=== PATIENT | female | born 1950 | race Caucasian/White ===

== ENCOUNTER → 2018-02-07 | Day surgery (SDC) | payer MEDICARE ==
[2018-02-02 10:23] LABS: BASOPHILS % 0.8 % (0.0-1.0); EOSINOPHILS # (AUTO) 0.2 (0.0-0.4); EOSINOPHILS % 3.2 % (0.0-6.0); HEMATOCRIT 40.8 % (34.2-44.1); HEMOGLOBIN 13.6 g/dL (12.0-16.0); LYMPHOCYTES # (AUTO) 1.6 (1.0-3.2); LYMPHOCYTES % 31.8 % (18.0-39.1); MEAN CORPUSCULAR HEMOGLOBIN 31.1 pg (28-32); MEAN CORPUSCULAR HGB CONC 33.3 g/dL (31-35); MEAN CORPUSCULAR VOLUME 93.2 fL (81-99); MONOCYTES # (AUTO) 0.5 (0.2-0.8); MONOCYTES % 9.7 % (4.4-11.3); NEUTROPHILS # (AUTO) 2.7 (2.1-6.9); NEUTROPHILS % 54.1 % (38.7-80.0); PLATELET COUNT 182 x10e3/uL (140-360); RED BLOOD COUNT 4.38 x10e6/uL (3.6-5.1); RED CELL DISTRIBUTION WIDTH 13.5 % (11.7-14.4)
[2018-02-02 11:04] LABS: ANION GAP 15.2 mmol/L (8-16); CALCIUM 9.8 mg/dL (8.4-10.2); CREATININE, SERUM 0.95 mg/dL (0.57-1.11); POTASSIUM 4.2 mmol/L (3.5-5.1)
--- NOTE | 2018-02-02 11:08 | Diagnostic Imaging Report ---
PROCEDURE: Frontal and lateral views of the chest. COMPARISON: None. INDICATIONS: PRE-OP FINDINGS: Lines/tubes: None. Lungs: The lungs are well inflated and clear. There is no evidence of pneumonia or pulmonary edema. Pleura: There is no pleural effusion or pneumothorax. Heart and mediastinum: The heart and the mediastinum are normal. Bones: No acute bony abnormality. IMPRESSION: 1. No acute cardiopulmonary disease. Dictated by: Max Saleem M.D. on 02/02/2018 at 11:12 Electronically approved by: Max Saleem M.D. on 02/02/2018 at 11:12
[~2018-02-07] MED LIST: BUPIVACAINE HCL 0.5% INJ 30 ML VIAL INJ ONE; CEFAZOLIN SOD 1 GM VIAL ONE; DEXAMETHASONE SOD PHOS INJ 4 MG/ML VIAL ONE; FENTANYL CITRATE/PF 100MCG/2 ML INJ ONE; KETOROLAC TROMETHAMINE 30 MG/ML VIAL ONE; LIDOCAINE HCL 2% LOCAL INJ 5 ML SDV VIAL INJ ONE; LYRICA50 MG PO; MIDAZOLAM HCL 2 MG/2 ML VIAL ONE; OMEPRAZOLE40 MG PO; ONDANSETRON HCL INJ 2 MG/ML VIAL ONE; PROPOFOL IV EMULSION 10 MG/ML 20 ML VIAL ONE; SEVOFLURANE INHAL SOLN 250 ML PEN BTL ONE; ZESTORETIC 20-1 EACH PO
--- NOTE | 2018-02-07 09:59 | Operative Report ---
DATE OF PROCEDURE: February 07, 2018 PREOPERATIVE DIAGNOSIS: Left de Quervain's tenosynovitis. POSTOPERATIVE DIAGNOSES 1. Left de Quervain's tenosynovitis. 2. Accessory compartment. PROCEDURES 1. Left de Quervain's release. 2. Release of accessory compartment. ANESTHESIA: General. HISTORY: The patient is a 67-year-old female with left de Quervain's tenosynovitis. The risks, benefits and alternatives to treatment were discussed with the patient and the family. They are prepared to undergo the procedures outlined. DETAILS OF PROCEDURE: Patient was marked preoperatively in the holding area. She was brought to the operating theater, and after the induction of adequate general anesthesia, she was prepped and draped in a supine position. A longitudinal incision was marked out over the 1st dorsal compartment. Time out was performed. The left upper extremity was then exsanguinated and tourniquet inflated to a pressure of 250 mmHg. The incision was made through the skin and subcutaneous tissues. Small venous tributaries were controlled with bipolar cautery. The branches of the radial sensory nerve were identified and retracted away from the 1st dorsal compartment. The compartment was noted to be quite tense and bulging. It is incised. The EPB tendon is clearly identified. The APL tendon was found proximal to the dorsal compartment and traced. It was noted to course through an accessory compartment. This accessory compartment was released, and then the APL tendon is fully released and decompressed. The wound was copiously irrigated with bacteriostatic saline. Closed with a 5-0 nylon in an interrupted horizontal mattress fashion. A Marcaine field block was performed at the operative site. The tourniquet was deflated. All the fingers pinked up nicely. A sterile bulking conforming bandage was applied. Patient tolerated the procedure well. Brought to the recovery room in satisfactory condition, and discharged with a postoperative instruction sheet, as well as a followup appointment. Job#: [id number] FRANCISCO JAVIER
== END | disposition home or self-care (01) ==
LOC: OR 06:04
PROVIDERS: ATTEND Plastic Surgery
DX: M65.4 Radial styloid tenosynovitis [de Quervain] (principal); I10 Essential (primary) hypertension; K21.9 Gastro-esophageal reflux disease without esophagitis; Z01.812 Encounter for preprocedural laboratory examination; Z01.810 Encounter for preprocedural cardiovascular examination; Z01.818 Encounter for other preprocedural examination; Z88.5 Allergy status to narcotic agent
CPT/HCPCS: 25000; 36415; 71046; 80048; 85025; 93005; J0690; J1100; J1885; J2001; J2250; J2405